=== PATIENT | female | born 1990 | race Caucasian/White ===

== ENCOUNTER 2022-08-19 11:27 | Observation (INO) | payer OTHER ==
[2022-08-19] MEDS ORDERED: Sodium Chloride 0.9% 1,000 ML IV ONE ×2 (11:40→16:13)
[2022-08-19] MEDS ORDERED: Tranexamic Acid 1,000 MG/10 ML Vial IV ONE (11:42)
[2022-08-19] MEDS ORDERED: Morphine 4 MG/ML Syringe IVPUSH ONE (11:43)
[2022-08-19] MEDS ORDERED: Tranexamic Acid 1,000 MG in Sodium Chloride 0.9% 50 ML IV SCH (12:00)
[2022-08-19 12:54] LABS: CARBON DIOXIDE,CO2 22.3 mmol/L (21.0-32.0); POTASSIUM,K 3.6 mmol/L (3.5-5.1)
[2022-08-19] MEDS ORDERED: Tranexamic Acid 1,000 MG in Sodium Chloride 0.9% 100 ML IV ONE (13:00)
[2022-08-19] MEDS ORDERED: Ondansetron 4 MG Tab.DIS PO ONE (15:09)
[2022-08-19] MEDS ORDERED: Acetaminophen/HYDROcodone 325-10 MG Tab PO ONE (15:09)
[2022-08-19] MEDS ORDERED: Ketorolac 30 MG/ML SDV IVPUSH PRN (22:34)
[2022-08-19] MEDS ORDERED: Lactated Ringers 1,000 ML IV SCH (22:45)
[2022-08-19] MEDS: Acetaminophen 500 MG Tab PO PRN (23:27)
[2022-08-20] MEDS: Acetaminophen 500 MG Tab PO PRN ×2 (05:12→13:35)
== END 2022-08-20 19:43 | disposition home or self-care (01) ==
LOC: MW.ED 11:27 → MW.ICU 20:01
PROVIDERS: ADMIT Obstetrics & Gynecology; ATTEND Obstetrics & Gynecology
DX: O03.39 Incomplete spontaneous abortion with other complications (principal); O16.9 Unspecified maternal hypertension, unspecified trimester; Z20.822 Contact with and (suspected) exposure to COVID-19
CPT/HCPCS: 36415; 36430; 76801; 80053; 83735; 84702; 85007; 85014; 85018; 85025; 85027; 85384; 85610; 85730; 86850; 86900; 86901; 86920; 87635; A9270; J1885; J2270; J7030; J7120; P9016; U0002

== ENCOUNTER 2023-07-17 00:05 | Inpatient (IN) | payer OTHER ==
[2023-07-17] MEDS ORDERED: Methylergonovine 0.2 MG/1 ML Amp IM PRN ×2 (00:08→18:04)
[2023-07-17] MEDS ORDERED: Misoprostol 25 MCG (1/4 of 100 MCG) Tab VAG PRN ×2 (00:08)
[2023-07-17] MEDS ORDERED: Sodium Chloride 0.9% 10 ML Syringe FLUSH PRN (00:08)
[2023-07-17] MEDS ORDERED: Nalbuphine 10 MG/0.5 ML Syringe IVPUSH PRN (00:08)
[2023-07-17] MEDS ORDERED: Tranexamic Acid IN NACL,ISO-OS 1,000 MG in Premix Bag 1 BAG IV PRN ×4 (00:08→18:04)
[2023-07-17] MEDS ORDERED: Sodium Chloride 0.9% 20 ML SDV IV PRN (00:08)
[2023-07-17] MEDS ORDERED: Terbutaline 1 MG/ML SDV SUBCUT PRN (00:08)
[2023-07-17] MEDS ORDERED: Misoprostol 200 MCG Tab PO PRN (00:08)
[2023-07-17] MEDS ORDERED: Lidocaine 1% 50 ML MDV INJECT PRN (00:08)
[2023-07-17] MEDS ORDERED: Carboprost Tromethamine 250 MCG/1 mL Vial IM PRN (00:08)
[2023-07-17] MEDS ORDERED: Water For Irrigation,Sterile 1,000 ML Container IRR PRN (00:08)
[2023-07-17] MEDS ORDERED: Sodium Chloride 0.9% 2.5 ML Syringe FLUSH PRN (00:08)
[2023-07-17] MEDS ORDERED: Oxytocin/0.9 % Sodium Chloride 30 UNIT/500 ML BAG IV SCH ×2 (00:15)
[2023-07-17] MEDS: Lactated Ringers 1,000 ML IV SCH ×3 (00:30→09:34)
[2023-07-17 01:11] LABS: HEMATOCRIT 37.1 % (37.0-47.0); HEMOGLOBIN 12.7 g/dL (12.0-16.0); MEAN CORPUSCULAR HEMOGLOBIN 30.1 pg (28.0-32.0); MEAN CORPUSCULAR HGB CONC 34.2 g/dL (32.0-36.0); MEAN CORPUSCULAR VOLUME 87.9 fL (83.0-99.0); MEAN PLATELET VOLUME 11.2 fL (9.4-12.3); PLATELET COUNT,PLT 151 K/uL (150-400); RED BLOOD CELL COUNT 4.22 M/uL (4.10-5.30); WHITE BLOOD CELL COUNT,WBC 8.42 K/uL (3.9-11.3)
[2023-07-17 01:34] LABS: BLOOD UREA NITROGEN,BUN 12 mg/dL (7.0-18.0); CALCIUM 8.8 mg/dL (8.5-10.1); CARBON DIOXIDE,CO2 24.4 mmol/L (21.0-32.0); CHLORIDE,CL 104 mmol/L (98-107); CREATININE 0.5 mg/dL (0.6-1.0); GLUCOSE RANDOM 85 mg/dL (74-106); POTASSIUM,K 3.7 mmol/L (3.5-5.1); SODIUM,NA 137 mmol/L (136-145)
[2023-07-17 01:41] LABS: ESTIMATED GFR 129 mL/min (>60)
[2023-07-17] MEDS ORDERED: Phenylephrine HCl 0.5 MG/5 ML AMP IVPUSH PRN (06:52)
[2023-07-17] MEDS ORDERED: ePHEDrine 50 MG/ML SDV IVPUSH PRN ×2 (06:52)
[2023-07-17] MEDS ORDERED: Ropivacaine HCl/PF 400 MG in Premix Bag 1 BAG EPIDUR SCH (07:00)
[2023-07-17] MEDS ORDERED: Dexmedetomidine 200 MCG/2 ML SDV ONE (07:55)
[2023-07-17] MEDS ORDERED: Bisacodyl 10 MG Supp RECTAL PRN (18:04)
[2023-07-17] MEDS ORDERED: Lanolin 100% Cream 7 GM Tube TOP PRN (18:04)
[2023-07-17] MEDS: Witch Hazel Medicated Pads 40/Jar TOP PRN (18:46)
[2023-07-17] MEDS: Benzocaine/Menthol 20%-0.5% Spray 78 GM Cannister TOP PRN (18:48)
[2023-07-17] MEDS: Hydrocortisone 2.5% Crm 30 GM Tube TOP PRN (18:48)
[2023-07-17] MEDS: Ibuprofen 800 MG Tab PO PRN (19:21)
[2023-07-17] MEDS: oxyCODONE 5 MG Tab PO PRN (20:28)
[2023-07-18] MEDS: Acetaminophen 500 MG Tab PO PRN ×2 (00:50→12:28)
[2023-07-18] MEDS: oxyCODONE 5 MG Tab PO PRN ×5 (01:48→20:27)
[2023-07-18] MEDS: Docusate Sodium 100 MG Cap PO PRN ×2 (04:41→20:27)
[2023-07-18 06:14] LABS: HEMATOCRIT 33.4 % (37.0-47.0); HEMOGLOBIN 11.6 g/dL (12.0-16.0)
[2023-07-18] MEDS: Ibuprofen 800 MG Tab PO PRN (07:11)
[2023-07-18] MEDS: Witch Hazel Medicated Pads 40/Jar TOP PRN (10:38)
[2023-07-18] MEDS: Lidocaine 2% 11 ML Jelly Filled Syringe MUCMEM PRN (17:41)
[2023-07-19] MEDS: Acetaminophen 500 MG Tab PO PRN (03:20)
[2023-07-19] MEDS: oxyCODONE 5 MG Tab PO PRN ×2 (05:29→10:28)
[2023-07-19] MEDS: Docusate Sodium 100 MG Cap PO PRN (10:28)
[2023-07-19] MEDS: Witch Hazel Medicated Pads 40/Jar TOP PRN (10:29)
[2023-07-19] MEDS: Benzocaine/Menthol 20%-0.5% Spray 78 GM Cannister TOP PRN (10:29)
[2023-07-19] MEDS: Lidocaine 2% 11 ML Jelly Filled Syringe MUCMEM PRN (10:30)
[2023-07-19] MEDS: Hydrocortisone 2.5% Crm 30 GM Tube TOP PRN (10:30)
== END 2023-07-19 13:39 | disposition home or self-care (01) | DRG 806 ==
LOC: MW.OBCHECK 00:05 → MW.OB 00:08 → MW.OBCHECK 00:09 → OBSVTOIN 18:04 → MW.OB 22:00
PROVIDERS: ADMIT Obstetrics & Gynecology; ATTEND Obstetrics & Gynecology
PROC: 10E0XZZ Delivery of Products of Conception, External Approach (ICD-10-PCS; principal; 2023-07-17)
PROC: 0KQM0ZZ Repair Perineum Muscle, Open Approach (ICD-10-PCS; 2023-07-17)
PROC: 3E0P7VZ Introduction of Hormone into Female Reproductive, Via Natural or Artificial Opening (ICD-10-PCS; 2023-07-17)
PROC: 3E033VJ Introduction of Other Hormone into Peripheral Vein, Percutaneous Approach (ICD-10-PCS; 2023-07-17)
PROC: 3E0R3BZ Introduction of Anesthetic Agent into Spinal Canal, Percutaneous Approach (ICD-10-PCS; 2023-07-17)
PROC: 00HU33Z Insertion of Infusion Device into Spinal Canal, Percutaneous Approach (ICD-10-PCS; 2023-07-17)
PROC: 10907ZC Drainage of Amniotic Fluid, Therapeutic from Products of Conception, Via Natural or Artificial Opening (ICD-10-PCS; 2023-07-17)
DX: O24.420 Gestational diabetes mellitus in childbirth, diet controlled (principal); D62 Acute posthemorrhagic anemia; Z37.0 Single live birth; O87.2 Hemorrhoids in the puerperium; O70.1 Second degree perineal laceration during delivery; O99.02 Anemia complicating childbirth; Z3A.39 39 weeks gestation of pregnancy
CPT/HCPCS: 36415; 51702; 59025; 59409; 80048; 82947; 85014; 85018; 85027; 86592; 86850; 86900; 86901; A9270-GY; J2590; J3490; J7120

== ENCOUNTER 2023-07-23 20:29 | Emergency (ER) | payer OTHER ==
[2023-07-23 21:21] LABS: BASOPHILS ABSOLUTE AUTO 0.03 K/uL (0.00-0.20); BASOPHILS PERCENT AUTO 0.4 % (0.0-1.0); EOSINOPHILS ABSOLUTE AUTO 0.09 K/uL (0.00-0.45); EOSINOPHILS PERCENT AUTO 1.3 % (0.0-6.0); HEMATOCRIT 39.5 % (37.0-47.0); HEMOGLOBIN 13.5 g/dL (12.0-16.0); IMMATURE GRAN ABSOLUTE AUTO 0.01 K/uL (0.00-0.05); IMMATURE GRAN PERCENT AUTO 0.1 % (0.0-0.4); LYMPHOCYTES ABSOLUTE AUTO 1.19 K/uL (1.00-4.80); LYMPHOCYTES PERCENT AUTO 16.9 % (24.0-44.0); MEAN CORPUSCULAR HEMOGLOBIN 30.3 pg (28.0-32.0); MEAN CORPUSCULAR HGB CONC 34.2 g/dL (32.0-36.0); MEAN CORPUSCULAR VOLUME 88.8 fL (83.0-99.0); MEAN PLATELET VOLUME 9.9 fL (9.4-12.3); MONOCYTES ABSOLUTE AUTO 0.48 K/uL (0.00-0.80); MONOCYTES PERCENT AUTO 6.8 % (0.0-8.0); NEUTROPHILS ABSOLUTE AUTO 5.25 K/uL (1.80-7.70); NEUTROPHILS PERCENT AUTO 74.5 % (41.0-71.0); PLATELET COUNT,PLT 308 K/uL (150-400); RED BLOOD CELL COUNT 4.45 M/uL (4.10-5.30); WHITE BLOOD CELL COUNT,WBC 7.05 K/uL (3.9-11.3)
== END 2023-07-23 21:37 | disposition home or self-care (01) ==
LOC: MW.ED 20:29
DX: O72.1 Other immediate postpartum hemorrhage (principal)
CPT/HCPCS: 36415; 85025; 99283

== ENCOUNTER 2024-10-17 15:41 | Emergency (ER) | payer OTHER ==
[2024-10-17] MEDS: Lidocaine 2% Viscous Solution 15 ML UD TOP ONE (16:38)
== END 2024-10-17 16:45 | disposition home or self-care (01) ==
LOC: MW.ED 15:41
DX: O22.43 Hemorrhoids in pregnancy, third trimester (principal); Z3A.00 Weeks of gestation of pregnancy not specified; Z79.899 Other long term (current) drug therapy
CPT/HCPCS: 99282; A9270

== ENCOUNTER 2024-12-01 00:03 | Inpatient (IN) | payer OTHER ==
[2024-12-01] MEDS ORDERED: Ondansetron 4 MG/2 ML SDV IVPUSH PRN (00:34)
[2024-12-01] MEDS ORDERED: Water For Irrigation,Sterile 1,000 ML Container IRR PRN (00:34)
[2024-12-01] MEDS ORDERED: Sodium Chloride 0.9% 2.5 ML Syringe FLUSH PRN (00:34)
[2024-12-01] MEDS ORDERED: Methylergonovine 0.2 MG/1 ML Amp IM PRN ×2 (00:34→13:52)
[2024-12-01] MEDS ORDERED: Misoprostol 200 MCG Tab PO PRN (00:34)
[2024-12-01] MEDS ORDERED: Carboprost Tromethamine 250 MCG/1 mL Vial IM PRN (00:34)
[2024-12-01] MEDS ORDERED: Butorphanol 2 MG/ML SDV IVPUSH PRN (00:34)
[2024-12-01] MEDS ORDERED: Sodium Chloride 0.9% 10 ML Syringe FLUSH PRN (00:34)
[2024-12-01] MEDS ORDERED: Misoprostol 200 MCG Tab RECTAL PRN ×2 (00:34→13:52)
[2024-12-01] MEDS ORDERED: Terbutaline 1 MG/ML SDV SUBCUT PRN (00:34)
[2024-12-01] MEDS ORDERED: Sodium Chloride 0.9% 20 ML SDV IV PRN (00:34)
[2024-12-01] MEDS ORDERED: Oxytocin/0.9 % Sodium Chloride 30 UNIT/500 ML BAG IV SCH (00:45)
[2024-12-01] MEDS ORDERED: Tranexamic Acid in NACL,ISO-OS 1,000 MG in Premix Bag 1 BAG IV PRN (00:46)
[2024-12-01] MEDS: Lactated Ringers 1,000 ML IV SCH (01:14)
[2024-12-01 01:30] LABS: HEMOGLOBIN 13.8 g/dL (12.0-16.0); MEAN CORPUSCULAR HEMOGLOBIN 31.4 pg (28.0-32.0); MEAN CORPUSCULAR HGB CONC 35.4 g/dL (32.0-36.0); MEAN CORPUSCULAR VOLUME 88.6 fL (83.0-99.0); PLATELET COUNT,PLT 135 K/uL (150-400); WHITE BLOOD CELL COUNT,WBC 6.39 K/uL (3.9-11.3)
[2024-12-01] MEDS: Misoprostol 25 MCG (1/4 of 100 MCG) Tab VAG PRN (01:34)
[2024-12-01] MEDS: Oxytocin/0.9 % Sodium Chloride 30 UNIT/500 ML BAG IV SCH (03:12)
[2024-12-01] MEDS ORDERED: Misoprostol 25 MCG (1/4 of 100 MCG) Tab VAG PRN (05:00)
[2024-12-01] MEDS ORDERED: ePHEDrine 50 MG/ML SDV IVPUSH PRN (06:46)
[2024-12-01] MEDS ORDERED: Phenylephrine HCl In 0.9% NaCl 1 MG/10 ML Syringe IVPUSH PRN (06:46)
[2024-12-01] MEDS ORDERED: dexmedeTOMIDine HCl 200 MCG/2 ML SDV EPIDUR SCH (07:00)
[2024-12-01] MEDS: Ropivacaine HCl/PF 400 MG in Premix Bag 1 BAG EPIDUR SCH (08:22)
[2024-12-01] MEDS: Acetaminophen 500 MG Tab PO ONE (09:49)
[2024-12-01] MEDS: Lidocaine 1% 50 ML MDV INJECT PRN (13:33)
[2024-12-01] MEDS ORDERED: Lanolin 100% Cream 7 GM Tube TOP PRN (13:52)
[2024-12-01] MEDS: Docusate Sodium 100 MG Cap PO SCH (14:07)
[2024-12-01] MEDS: Ibuprofen 800 MG Tab PO PRN (14:07)
[2024-12-01] MEDS: Witch Hazel Medicated Pads 40/Jar TOP PRN (14:07)
[2024-12-01] MEDS: Benzocaine/Menthol 20%-0.5% Spray 78 GM Cannister TOP PRN (14:08)
[2024-12-01 14:09] LABS: PH,UMBILICAL ARTERIAL 7.17 (7.18-7.38)
[2024-12-01 14:10] LABS: PH,UMBILICAL VENOUS 7.34 (7.25-7.45)
[2024-12-02] MEDS: Acetaminophen 500 MG Tab PO PRN (00:35)
[2024-12-02 06:05] LABS: HEMATOCRIT 35.2 % (37.0-47.0)
[2024-12-02] MEDS: Hydrocortisone 2.5% Crm 30 GM Tube TOP PRN (10:18)
[2024-12-02] MEDS: oxyCODONE 5 MG Tab PO PRN (16:33)
== END 2024-12-02 21:08 | disposition home or self-care (01) | DRG 806 ==
LOC: MW.OB 00:03 → OBSVTOIN 13:52 → MW.OB 16:42
PROVIDERS: ADMIT Obstetrics & Gynecology; ATTEND Obstetrics & Gynecology
PROC: 10E0XZZ Delivery of Products of Conception, External Approach (ICD-10-PCS; principal; 2024-12-01)
PROC: 0KQM0ZZ Repair Perineum Muscle, Open Approach (ICD-10-PCS; 2024-12-01)
PROC: 10907ZC Drainage of Amniotic Fluid, Therapeutic from Products of Conception, Via Natural or Artificial Opening (ICD-10-PCS; 2024-12-01)
PROC: 3E0DXGC Introduction of Other Therapeutic Substance into Mouth and Pharynx, External Approach (ICD-10-PCS; 2024-12-01)
PROC: 3E0R3BZ Introduction of Anesthetic Agent into Spinal Canal, Percutaneous Approach (ICD-10-PCS; 2024-12-01)
PROC: 3E033VJ Introduction of Other Hormone into Peripheral Vein, Percutaneous Approach (ICD-10-PCS; 2024-12-01)
DX: O99.02 Anemia complicating childbirth (principal); D62 Acute posthemorrhagic anemia; Z37.0 Single live birth; O99.344 Other mental disorders complicating childbirth; Z79.899 Other long term (current) drug therapy; Z3A.39 39 weeks gestation of pregnancy; O70.1 Second degree perineal laceration during delivery
CPT/HCPCS: 01967; 36415; 59025; 59409; 82803; 85014; 85018; 85027; 86592; 86850; 86900; 86901; A9270-GY; J2003; J2590; J2795; J7120